=== PATIENT | female | born 1960 | race Caucasian/White ===

== ENCOUNTER → 2016-09-11 | Outpatient (CLI) | payer OTHER ==
[~2016-09-11] MED LIST: ASPIR LOW81 MG PO; CETIRIZINE HCL10 MG PO; CYMBALTA30 MG PO; ESIDREX,ORETIC,25 MG PO; FLEXERIL10 MG PO; HYDR25T PO; KENALOG 0.1% LO60 ML T; LIPITOR20 MG PO; LIPITOR40 MG PO; LISINOPRIL40 MG PO; LOPRESSOR25 MG PO; METFORMIN HCL500 MG PO; MOTRIN800 MG PO; Meclizine25 MG PO; NAPROSYN500 MG PO; NOVOLOG 70/30 M10 ML SC; OMEPRAZOLE D/R20 MG PO; OXYBUTYNIN5 MG PO; PERCOCET 325 MG1 TA5 PO; PREVACID30 M1 PO; PRINIVIL20 MG PO; PROAIR HFA0.09 MG/AC IH; PROTONIX TR40 MG PO; PYRIDIUM200 MG PO; ROBITUSSIN5 ML PO; TERBINAFINE HCL1% TP; TRAD5TAB1 PO; VICODIN 500 MG-1 TAB PO; VITAMIN E PO; ZANTAC150 MG PO; ZITHROMAX Z PA250 MG PO; ZOFRAN ODT4 MG SL; ZOFRAN4 MG PO
== END | disposition home or self-care (01) ==
LOC: RAD 08:00 → RAD/SH 08:00
DX: R13.19 Other dysphagia (principal)

== ENCOUNTER → 2016-11-11 | Outpatient (CLI) | payer OTHER | END | disposition home or self-care (01) | LOC: US 14:33 | DX: N95.0 Postmenopausal bleeding (principal); R10.32 Left lower quadrant pain ==

== ENCOUNTER → 2018-05-28 | Outpatient (CLI) | payer OTHER ==
[~2018-05-28] MED LIST changes: +ALOGLIPTIN12.5 MG PO; +BASAG SOL SQ; +CLARITIN-D 121 EACH PO; +Carafate1 GM PO; +MECLIZINE HCL25 M2 PO; +NITROFURANTOIN100 M8 PO; +NORVASC5 MG PO; +VITAMIN D32000 UNIT PO
== END | disposition home or self-care (01) ==
LOC: RAD 12:55
DX: M19.031 Primary osteoarthritis, right wrist (principal); I10 Essential (primary) hypertension; E11.9 Type 2 diabetes mellitus without complications

== ENCOUNTER → 2019-03-15 | Day surgery (SDC) | payer OTHER ==
[~2019-03-15] VITALS: Ht 160 cm; Wt 99.8 kg
[~2019-03-15] MED LIST changes: +GABAPENTIN100 M2 PO; +INSULIN LI100 UNIT/1 SQ; +VICTOZA 2-0.6 MG/0.1 SQ
--- NOTE | ~2019-03-15 | O ---
[place], [place] OPERATIVE NOTE NAME: [id number] UNIT #: [id number] ROOM: DOCTOR: VIRGINIA BERG,PANCHO BIRTHDATE: [birth year] DOS: The patient has presented with abdominal pain, undergoing investigation. PROCEDURE: Today's procedure part of investigation is colonoscopy. PREMEDICATION: Propofol. SCOPE: Olympus forward-viewing colonoscope 10L video. DESCRIPTION OF PROCEDURE: After putting the patient in left lateral position and application of lubricant to the scope, the scope was introduced. Thereafter, under direct visualization, advanced through the length of colon without difficulty. Diverticulosis was noticed. Base of the cecum explored, appendiceal orifice identified, ileocecal valve was defined. Air was suctioned out. A sessile polypoid lesion from sigmoid colon was removed. Base of the cecum explored, photographed. The patient extubated, tolerated the procedure well. IMPRESSION: Diverticulosis, sessile colonic polyp, sigmoid colon, status post piecemeal polypectomy. PLAN AND DISCUSSION: High fiber diet. ACTIVITY: Ad jackson. FOLLOWUP: As outpatient. I thank you very much indeed for your kind referral. PANCHO COLEMAN MD CM:OPRECORD:OPERATIVE NOTE 1012 1300 PANCHO COLEMAN MD 03/15/19 1300 interface
--- NOTE | ~2019-03-15 | O ---
[place], [place] OPERATIVE NOTE NAME[id number] UNIT #: [id number] ROOM: DOCTOR: PANCHO COLEMAN MD BIRTHDATE: [birth year] DOS: GASTROENDOSCOPIC REPORT HISTORY OF PRESENT ILLNESS: This is a 58-year-old patient who has presented with chief complaint of epigastric abdominal pain, undergoing investigation. The patient with a history of epigastric distress, status post Donovan fundoplication. PAST SURGICAL HISTORY: The patient with a history of cholecystectomy, D and C, bladder lift, tonsillectomy, and hysterectomy. PAST MEDICAL HISTORY: Hypertension, diabetes, and hyperlipidemia. PROCEDURE: Today's procedure part of investigation is panendoscopy and colonoscopy. PREMEDICATION: Propofol. SCOPE: Olympus forwarding gastroscope Q10 video. REPORT: After putting the patient in left lateral position and application of lubricant to the scope, the scope was introduced. Thereafter, under direct visualization, advanced through the length of esophagus without difficulty. Gastric pouch was entered. Gastritis seen. Antral biopsy obtained. Duodenal bulb, second and third part within normal limit. Air was suctioned out. The patient was extubated, tolerated the procedure well. IMPRESSION: Gastritis, status post Donovan fundoplication repair. PLAN AND DISCUSSION: I am going to proceed with 40 mg of Protonix a day, as she has been taking and will proceed with colonoscopy. PANCHO COLEMAN MD CM:OPRECORD:OPERATIVE NOTE 1012 1256 PANCHO COLEMAN MD 03/15/19 1256 interface
[2019-03-15 08:00] VITALS: BP 155/93
[2019-03-15 10:02] VITALS: BP 138/67
[2019-03-15 10:17] VITALS: BP 120/82
[2019-03-15 10:31] VITALS: BP 142/83
== END | disposition home or self-care (01) ==
LOC: SDC 03-10 10:15
DX: K62.5 Hemorrhage of anus and rectum (principal); K63.5 Polyp of colon; K29.50 Unspecified chronic gastritis without bleeding; K57.30 Diverticulosis of large intestine without perforation or abscess without bleeding; I10 Essential (primary) hypertension; E11.9 Type 2 diabetes mellitus without complications; E78.5 Hyperlipidemia, unspecified; J45.909 Unspecified asthma, uncomplicated; K44.9 Diaphragmatic hernia without obstruction or gangrene; F41.9 Anxiety disorder, unspecified; F32.9 Major depressive disorder, single episode, unspecified; E66.9 Obesity, unspecified; Z68.38 Body mass index [BMI] 38.0-38.9, adult; Z90.49 Acquired absence of other specified parts of digestive tract; Z90.710 Acquired absence of both cervix and uterus; Z79.899 Other long term (current) drug therapy; Z79.84 Long term (current) use of oral hypoglycemic drugs; Z98.890 Other specified postprocedural states; Z88.8 Allergy status to other drugs, medicaments and biological substances; Z83.3 Family history of diabetes mellitus; Z82.49 Family history of ischemic heart disease and other diseases of the circulatory system; Z80.9 Family history of malignant neoplasm, unspecified

== ENCOUNTER 2019-09-21 14:30 | Emergency (ER) | payer OTHER ==
[~2019-09-21] VITALS: Ht 160 cm; Wt 96.2 kg
[2019-09-21 15:04] LABS: BASO % 0.4 % (0.0-1.0); EOS % 0.1 % (1.0-4.0); HEMATOCRIT 42.4 % (37.0-47.0); LYMPH # 0.9 10*3/uL (1.3-4.4); LYMPH % 8.8 % (27.0-41.0); MEAN CORPUSCULAR HGB 30.4 pg (27.0-31.0); MEAN CORPUSCULAR HGB CONC 33.7 g/dl (33.0-37.0); MEAN PLATELET VOLUME 10.1 fl (9.6-12.3); MONO # 0.3 10*3/uL (0.1-1.0); MONO % 2.8 % (3.0-9.0); NEUT # 9.3 10*3/uL (2.3-7.9); NEUT % 87.4 % (47.0-73.0); PLATELET COUNT AUTOMATED 213 10*3/uL (130-400); RED BLOOD COUNT 4.71 10*6/uL (4.10-5.10); WHITE BLOOD COUNT 10.6 10*3/uL (4.8-10.8)
[2019-09-21 15:14] LABS: ACT PARTIAL THROMBO TIME 24.5 SECONDS (20.0-32.1)
[2019-09-21 15:19] LABS: ALBUMIN 3.5 gm/dl (3.1-4.5); ALKALINE PHOSPHATASE 82 U/L (45-117); BUN 10 mg/dl (7-24); CHLORIDE 108 mmol/L (98-107); CREATININE 1.01 mg/dL (0.55-1.02); SGOT/AST 35 IU/L (3-35); SGPT/ALT 42 U/L (12-78); SODIUM 137 mmol/L (136-145); TOTAL PROTEIN 7.4 gm/dL (6.4-8.2)
[2019-09-21 16:59] VITALS: BP 144/84
[2019-09-21] MEDS ORDERED: ZOFRAN4 MG PO (18:14)
== END 2019-09-21 18:49 | disposition home or self-care (01) ==
LOC: ED 14:30
PROVIDERS: Emergency Medicine
DX: R51 Headache (principal); R11.2 Nausea with vomiting, unspecified; E11.9 Type 2 diabetes mellitus without complications; K21.9 Gastro-esophageal reflux disease without esophagitis; E78.5 Hyperlipidemia, unspecified; J45.909 Unspecified asthma, uncomplicated; F41.9 Anxiety disorder, unspecified; I10 Essential (primary) hypertension; F32.9 Major depressive disorder, single episode, unspecified; Z88.2 Allergy status to sulfonamides; Z88.8 Allergy status to other drugs, medicaments and biological substances; Z91.041 Radiographic dye allergy status; Z88.0 Allergy status to penicillin; Z79.899 Other long term (current) drug therapy; Z79.4 Long term (current) use of insulin; Z90.49 Acquired absence of other specified parts of digestive tract

== ENCOUNTER 2019-12-22 10:06 | Inpatient (IN) | payer OTHER ==
[~2019-12-22] VITALS: Ht 167.6 cm; Wt 91.7 kg
[2019-12-22 10:10] VITALS: BP 157/96
[2019-12-22 10:37] LABS: BASO # 0.1 10*3/uL (0.0-0.1); BASO % 0.5 % (0.0-1.0); EOS % 0.2 % (1.0-4.0); HEMATOCRIT 45.5 % (37.0-47.0); LYMPH # 1.5 10*3/uL (1.3-4.4); LYMPH % 13.9 % (27.0-41.0); MONO # 0.3 10*3/uL (0.1-1.0); NEUT # 8.9 10*3/uL (2.3-7.9); NEUT % 81.8 % (47.0-73.0); PLATELET COUNT AUTOMATED 253 10*3/uL (130-400); RED BLOOD COUNT 5.17 10*6/uL (4.10-5.10); RED CELL DISTRI WIDTH 11.9 % (0-14.5); WHITE BLOOD COUNT 10.9 10*3/uL (4.8-10.8)
[2019-12-22 10:51] LABS: ALBUMIN 3.6 gm/dl (3.1-4.5); CREATININE 1.32 mg/dL (0.55-1.02)
[2019-12-22 12:50] LABS: BILIRUBIN NEGATIVE (NEGATIVE); BLOOD NEGATIVE (NEGATIVE); CLARITY CLEAR (CLEAR); COLOR YELLOW (YELLOW); GLUCOSE 3+ (NEGATIVE); KETONE 3+ (NEGATIVE)
[2019-12-22 12:51] LABS: LEUKO ESTERASE NEGATIVE (NEGATIVE); NITRITE NEGATIVE (NEGATIVE); UROBILINOGEN 0.2 E.U./dl (0.2-1.0)
[2019-12-22 12:54] LABS: BACTERIA 1+
[2019-12-22 13:11] VITALS: BP 166/92
[2019-12-22] MEDS ORDERED: ZOFRAN4 MG PO (13:17)
--- NOTE | 2019-12-22 13:56 | NUR ---
PT WITH INCREASED N/V @ DISCHARGE AND PT TO BE ADMITTED PER MICH MCNAMARA ORAL AND MAXILLOFACIAL SURGERY RESIDENT-BC
--- NOTE | 2019-12-22 14:30 | NUR ---
PT DENIES WOUNDS. BRIEF HEAD TO TOE WAS PERFORMED. PT DOES NOT WANT TO BE ROLLED AROUND OR MOVE AT THIS TIME D/T N/V.
[2019-12-22] MEDS ORDERED: AMITRIPTYLINE H10 M1 PO (15:33)
[2019-12-22] MEDS ORDERED: MONTELUKAST SOD10 MG PO (15:35)
[2019-12-22] MEDS ORDERED: STEGLATRO15 MG PO (15:38)
[2019-12-22 16:40] VITALS: BP 148/91
--- NOTE | 2019-12-22 16:40 | NUR ---
Time: 1639 A 59 year old FEMALE admitted to 5E under services of DR. EILEEN BERG,[facility] Pt. arrived via bed from ER. Chief complaint: NAUSEA,VOMITING AND H/A. MARCEL SOSA
--- NOTE | 2019-12-22 17:47 | NUR ---
NOTIFIED DR FORRESTER OF NEW CONSULT FOR POSSIBLE EGD.
[2019-12-22 20:00] VITALS: BP 154/85
[2019-12-23] VITALS: BP 138/66
--- NOTE | 2019-12-23 02:25 | NUR ---
TYLENOL GIVEN FOR HEADACHE RATED A 8 OUT OF 10
--- NOTE | 2019-12-23 03:00 | NUR ---
24 HR chart check completed.
--- NOTE | 2019-12-23 03:20 | NUR ---
tylenol effective patient sleeping peacefully in room
[2019-12-23 06:07] LABS: BASO % 0.1 % (0.0-1.0); HEMATOCRIT 38.4 % (37.0-47.0); LYMPH # 1.2 10*3/uL (1.3-4.4); MEAN CELL VOLUME 88.1 fl (81.0-99.0); MEAN CORPUSCULAR HGB 29.1 pg (27.0-31.0); MEAN CORPUSCULAR HGB CONC 33.1 g/dl (33.0-37.0); MEAN PLATELET VOLUME 10.4 fl (9.6-12.3); MONO # 0.5 10*3/uL (0.1-1.0); MONO % 3.8 % (3.0-9.0); NEUT % 85.1 % (47.0-73.0); PLATELET COUNT AUTOMATED 226 10*3/uL (130-400); RED BLOOD COUNT 4.36 10*6/uL (4.10-5.10); RED CELL DISTRI WIDTH 12.1 % (0-14.5); WHITE BLOOD COUNT 11.7 10*3/uL (4.8-10.8)
[2019-12-23 06:25] LABS: ALBUMIN 2.8 gm/dl (3.1-4.5); BUN 18 mg/dl (7-24); CHLORIDE 100 mmol/L (98-107); POTASSIUM 4.1 mmol/L (3.5-5.1); SODIUM 134 mmol/L (136-145)
[2019-12-23 06:28] LABS: ALKALINE PHOSPHATASE 62 U/L (45-117); CREATININE 1.06 mg/dL (0.55-1.02); SGOT/AST 17 IU/L (3-35); SGPT/ALT 24 U/L (12-78); TOTAL PROTEIN 6.3 gm/dL (6.4-8.2)
--- NOTE | 2019-12-23 07:40 | NUR ---
PATIENT RESTING QUIETLY IN BED. AROUSES EASILY. BSG 269 ACCORDING TO CMP. SCHEDULED 20 UNITS OF INSULIN ADMINISTERED AT THIS TIME PER ORDER. PT DENIES ANY ABD PAIN/DISCOMFORT AT THIS TIME. PT DENIES ANY NAUSEA/VOMITING THROUGHOUT THE NIGHT. WILL CONTINUE TO MONITOR. IVF INFUSING. CALL LIGHT WITHIN REACH.
[2019-12-23 08:00] VITALS: BP 120/55
--- NOTE | 2019-12-23 08:32 | NUR ---
IN TO SEE PATIENT.
[2019-12-23 12:00] VITALS: BP 116/59
--- NOTE | 2019-12-23 12:05 | NUR ---
[facility] Home in to talk to patient. Patient states lives at HOME with . There are FEW steps in the home. Physician: EILEEN Pharmacy: [facility] Home health services: NONE Patient's level of ADLs: INDEPENDENT Patient has working utilities: YES DME: NONE Follow-up physician's appointment after d/c: WILL BE MADE BY HOSPITALIST NURSE DIRECTOR ON DISCHARGE Does patient want to access PORTAL?: NO Discharge plan PT LIVES AT HOME WITH HER FAMILY AND IS INDEPENDENT AT HOME DISCUSSED HOME NEEDS WITH PT BUT SHE DECLINES AT THIS TIME. WILL CONTINUE TO FOLLOW. PLAN IS TO RETURN HOME WHEN MEDICALLY STABLE. STATES SHE WILL HAVE A RIDE HOME. DANILO NAVAS
--- NOTE | 2019-12-23 12:10 | NUR ---
TYLENOL GIVEN PER PRN ORDER FOR C/O HEADACHE. WILL MONITOR EFFECTIVENESS. VSS.
--- NOTE | 2019-12-23 13:10 | NUR ---
TYLENOL RELIEVING HEADACHE PER PT. WILL CONTINUE TO MONITOR. PT TOLERATING REGULAR DIET WITHOUT ANY DIFFICULTY. CALL LIGHT WITHIN REACH.
[2019-12-23 16:00] VITALS: BP 117/66
[2019-12-23 20:00] VITALS: BP 101/48; BP 106/62
--- NOTE | 2019-12-23 21:15 | NUR ---
IN TO ASSESS PATIENT. PATIENT COOPERATIVE, PLEASANT BUT FLAT. BREATHING IS EASY AND REGULAR ON ROOM AIR. IV FLUIDS INFUSING PER ORDER. PATIENT STATES THAT SHES FEELING BETTER THAN WHEN SHE CAME IN AND HAD ONE BOUT OF DIARRHEA EARLIER THIS MORNING. DENIES ANY NAUSEA. CALL LIGHT WITHIN REACH, WILL MONITOR
[2019-12-24] VITALS: BP 100/56; BP 95/53
--- NOTE | 2019-12-24 00:37 | NUR ---
24 HR chart check completed.
--- NOTE | 2019-12-24 00:59 | NUR ---
PATIENT SLEEPING, NO DISTRESS NOTED. BREATHING IS EASY AND REGULAR. IV FLUIDS INFUSING PER ORDER. CALL LIGHT WITHIN REACH, WILL MONITOR
[2019-12-24 08:00] VITALS: BP 107/63
[2019-12-24 12:00] VITALS: BP 148/76
--- NOTE | 2019-12-24 12:03 | NUR ---
PATIENT MEDICATED WITH TYLENOL FOR COMPLAINTS OF HEADACHE. WILL MONITOR FOR EFFECTIVENESS.
--- NOTE | 2019-12-24 13:03 | NUR ---
PT STATES THAT TYLENOL HAS NOT BEED EFFECTIVE - WILL NOTIIFY
[2019-12-24 16:00] VITALS: BP 125/72
--- NOTE | 2019-12-24 17:00 | NUR ---
PATIENT IS REFUSING 1800 MED DUE TO NAUSEA. STATES SHE WILL RETRY IN A LITTLE BIT. ALSO HELD 1700 INSULIN DUE TO BSG 136 & PATIENT NOT EATING AT THIS TIME.
[2019-12-24 20:00] VITALS: BP 154/76
--- NOTE | 2019-12-24 20:34 | NUR ---
IN TO ASSESS PATIENT. PATIENT STATES SHE FEELS MUCH BETTER AT THIS TIME BESIDES HER POOR APPETITE. SHE STATES LONG SHE DOESN'T EAT SHE IS OK, BUT WHEN SHE EATS IT FEELS LIKE SHE'S GOING TO THROW IT BACK UP. PATIENT STATES SHE HAS HAD ONE OTHER BOWEL MOVEMENT TONIGHT AND IT WAS SMALL. PATIENT HAS NO OTHER COMPLAINTS. DENIES ANY PAIN IN THE ABDOMEN AT THIS TIME. STATES IT COMES AND GOES. CALL LIGHT WITHIN REACH, WILL MONITOR
[2019-12-25] VITALS: BP 130/58
--- NOTE | 2019-12-25 02:00 | NUR ---
PATIENT SLEEPING, NO DISTRESS NOTED. IV FLUIDS INFUSING. CALL LIGHT WITHIN REACH, WILL MONITOR
--- NOTE | 2019-12-25 04:12 | NUR ---
24 HR chart check completed.
[2019-12-25 07:14] LABS: CREATININE 1.17 mg/dL (0.55-1.02); POTASSIUM 3.6 mmol/L (3.5-5.1)
[2019-12-25 08:00] VITALS: BP 149/74
--- NOTE | 2019-12-25 10:45 | NUR ---
Engineering Assistant in to talk to patient. Patient states lives at home with her and her children. There are 16 steps in the home and 4 steps outside the home. Physician: Dr. Hakeem Guaman Pharmacy: [facility] Home health services: none Patient's level of ADLs: INDEPENDENT Patient has working utilities: yes DME: none Follow-up physician's appointment after d/c: she prefers to make her own follow up appt after discharge Does patient want to access PORTAL?: no Discharge plan discussed with patient. She lives at home with her family. She is independent in her ADLs and ambulation. Discussed home health care services and she declines any home health care needs at this time. Engineering Assistant will continue to follow for discharge planning needs. When medically stable she will be discharged to home. She states either her or stepfather will provide transportation on discharge. LUIGI HOANG
[2019-12-25 12:00] VITALS: BP 125/65
[2019-12-25] MEDS ORDERED: PROTONIX TR40 MG PO (15:31)
[2019-12-25] MEDS ORDERED: IMITREX100 MG PO (15:31)
[2019-12-25] MEDS ORDERED: ZOFRAN4 MG PO (15:31)
[2019-12-25] MEDS ORDERED: CIPRO500 MG PO (15:31)
[2019-12-25] MEDS ORDERED: FLAGYL500 MG PO (15:31)
--- NOTE | 2019-12-25 15:55 | NUR ---
Discharge instructions reviewed with patient/family. Patient receptive and verbalizes understanding. Follow-up care arranged. Written instructions given to patient/family. [place] DISCONTINUED. PATIENT AMBULATORY OFF FLOOR. DEBBIE COVARRUBIAS
== END 2019-12-25 15:57 | disposition home or self-care (01) | DRG 249 ==
LOC: ED 10:06 → 5E 13:45 → EDHOLD 13:45 → 5E 13:57
PROVIDERS: Nurse Practitioner Family; ADMIT Internal Medicine; ATTEND Internal Medicine
DX: K52.9 Noninfective gastroenteritis and colitis, unspecified (principal); K29.00 Acute gastritis without bleeding; E78.5 Hyperlipidemia, unspecified; E55.9 Vitamin D deficiency, unspecified; N17.0 Acute kidney failure with tubular necrosis; I10 Essential (primary) hypertension; E87.1 Hypo-osmolality and hyponatremia; G43.909 Migraine, unspecified, not intractable, without status migrainosus; F32.9 Major depressive disorder, single episode, unspecified; F41.9 Anxiety disorder, unspecified; K21.9 Gastro-esophageal reflux disease without esophagitis; G56.00 Carpal tunnel syndrome, unspecified upper limb; E66.01 Morbid (severe) obesity due to excess calories; K44.9 Diaphragmatic hernia without obstruction or gangrene; K76.0 Fatty (change of) liver, not elsewhere classified; K57.30 Diverticulosis of large intestine without perforation or abscess without bleeding; B96.20 Unspecified Escherichia coli [E. coli] as the cause of diseases classified elsewhere; E11.9 Type 2 diabetes mellitus without complications; E44.0 Moderate protein-calorie malnutrition; N39.0 Urinary tract infection, site not specified; Z79.4 Long term (current) use of insulin; Z88.0 Allergy status to penicillin; Z88.2 Allergy status to sulfonamides; Z88.1 Allergy status to other antibiotic agents; Z88.8 Allergy status to other drugs, medicaments and biological substances; Z91.041 Radiographic dye allergy status; Z90.49 Acquired absence of other specified parts of digestive tract; Z98.51 Tubal ligation status; Z82.49 Family history of ischemic heart disease and other diseases of the circulatory system; Z83.3 Family history of diabetes mellitus; Z80.1 Family history of malignant neoplasm of trachea, bronchus and lung; Z68.32 Body mass index [BMI] 32.0-32.9, adult; Z87.11 Personal history of peptic ulcer disease; Z87.440 Personal history of urinary (tract) infections; Z79.82 Long term (current) use of aspirin; Z79.899 Other long term (current) drug therapy

== ENCOUNTER → 2020-01-08 | Outpatient (CLI) | payer OTHER ==
[~2020-01-08] MED LIST changes: +AMITRIPTYLINE H10 M1 PO; +CIPRO500 MG PO; +FLAGYL500 MG PO; +IMITREX100 MG PO; +MONTELUKAST SOD10 MG PO; +STEGLATRO15 MG PO
== END | disposition home or self-care (01) ==
LOC: NM 07:56
DX: K30 Functional dyspepsia (principal)

== ENCOUNTER → 2020-02-19 | Outpatient (CLI) | payer OTHER | END | disposition home or self-care (01) | LOC: MAMMO 13:30 → LAB 14:09 | PROVIDERS: ATTEND Internal Medicine | DX: Z12.31 Encounter for screening mammogram for malignant neoplasm of breast (principal); E11.9 Type 2 diabetes mellitus without complications; N63.15 Unspecified lump in the right breast, overlapping quadrants ==

== ENCOUNTER 2020-04-25 21:56 | Emergency (ER) | payer OTHER ==
[2020-04-25 22:32] LABS: ALBUMIN 3.8 gm/dl (3.1-4.5); CREATININE 1.45 mg/dL (0.55-1.02); POTASSIUM 4.1 mmol/L (3.5-5.1); TOTAL PROTEIN 8.1 gm/dL (6.4-8.2)
[2020-04-26 00:16] LABS: BASO % 0.1 % (0.0-1.0); EOS % 0.1 % (1.0-4.0); LYMPH # 2.2 10*3/uL (1.3-4.4); LYMPH % 13.6 % (27.0-41.0); MEAN CELL VOLUME 88.4 fl (81.0-99.0); MEAN CORPUSCULAR HGB 29.7 pg (27.0-31.0); MEAN CORPUSCULAR HGB CONC 33.6 g/dl (33.0-37.0); MEAN PLATELET VOLUME 10.2 fl (9.6-12.3); MONO # 0.8 10*3/uL (0.1-1.0); MONO % 5.1 % (3.0-9.0); NEUT # 12.7 10*3/uL (2.3-7.9); NEUT % 80.5 % (47.0-73.0); PLATELET COUNT AUTOMATED 241 10*3/uL (130-400); RED BLOOD COUNT 4.75 10*6/uL (4.10-5.10); RED CELL DISTRI WIDTH 12.3 % (0-14.5); WHITE BLOOD COUNT 15.8 10*3/uL (4.8-10.8)
[2020-04-26 02:57] VITALS: BP 109/57
== END 2020-04-26 04:32 | disposition short-term general hospital (02) ==
LOC: ED 21:56
PROVIDERS: Internal Medicine
DX: N18.30 Chronic kidney disease, stage 3 unspecified (principal); N17.9 Acute kidney failure, unspecified; R73.9 Hyperglycemia, unspecified; I63.9 Cerebral infarction, unspecified; D72.829 Elevated white blood cell count, unspecified; Z91.041 Radiographic dye allergy status; Z88.0 Allergy status to penicillin; Z88.8 Allergy status to other drugs, medicaments and biological substances; Z79.899 Other long term (current) drug therapy; Z79.82 Long term (current) use of aspirin; Z79.4 Long term (current) use of insulin

== ENCOUNTER 2020-06-19 15:15 | Inpatient (IN) | payer OTHER ==
[~2020-06-19] VITALS: Ht 157.4 cm; Wt 94.8 kg
[~2020-06-19 15:15] MED LIST changes: +LIPITOR80 MG PO
[2020-06-19 15:27] VITALS: BP 133/78
[2020-06-19 17:53] LABS: BASO # 0.1 10*3/uL (0.0-0.1); BASO % 0.7 % (0.0-1.0); EOS # 0.4 10*3/uL (0.0-0.4); EOS % 3.2 % (1.0-4.0); HEMATOCRIT 39.1 % (37.0-47.0); LYMPH # 2.8 10*3/uL (1.3-4.4); LYMPH % 23.5 % (27.0-41.0); MEAN CELL VOLUME 91.1 fl (81.0-99.0); MEAN CORPUSCULAR HGB 28.7 pg (27.0-31.0); MEAN CORPUSCULAR HGB CONC 31.5 g/dl (33.0-37.0); MEAN PLATELET VOLUME 9.1 fl (9.6-12.3); MONO # 0.8 10*3/uL (0.1-1.0); MONO % 6.9 % (3.0-9.0); NEUT # 7.8 10*3/uL (2.3-7.9); PLATELET COUNT AUTOMATED 384 10*3/uL (130-400); RED BLOOD COUNT 4.29 10*6/uL (4.10-5.10); RED CELL DISTRI WIDTH 13.6 % (0-14.5)
[2020-06-19 18:02] LABS: BILIRUBIN Negative (Negative); BLOOD 1+ (Negative); CLARITY Cloudy (Clear); COLOR Yellow (Yellow); GLUCOSE Negative (Negative); KETONE Trace (Negative); LEUKO ESTERASE 2+ (Negative); NITRITE Positive (Negative); PH 5.5 (4.5-8.0); UROBILINOGEN 0.2 E.U./dl (0.0-1.0)
[2020-06-19 18:07] LABS: ACT PARTIAL THROMBO TIME 24.6 SECONDS (20.0-32.1); INTERNATIONAL NORM RATIO 1.1 (2.0-3.5)
[2020-06-19 18:10] LABS: ALBUMIN 2.9 gm/dl (3.1-4.5); ALKALINE PHOSPHATASE 77 U/L (45-117); BUN 25 mg/dl (7-24); CHLORIDE 103 mmol/L (98-107); CREATININE 1.19 mg/dL (0.55-1.02); LIPASE 312 U/L (73-393); POTASSIUM 3.9 mmol/L (3.5-5.1); SGOT/AST 49 IU/L (3-35); SGPT/ALT 63 U/L (12-78); SODIUM 136 mmol/L (136-145); TOTAL PROTEIN 7.7 gm/dL (6.4-8.2)
[2020-06-19 18:16] LABS: BACTERIA 3+; WBC TNTC wbc/hpf (0-5)
[2020-06-19 18:18] LABS: TROPONIN I < 0.015 ng/ml (<0.045)
[2020-06-19 19:41] VITALS: BP 130/71
[2020-06-19] MEDS ORDERED: ZOFRAN4 MG PO (21:57)
[2020-06-19] MEDS ORDERED: DULCOLAX10 M1 R (21:58)
[2020-06-19] MEDS ORDERED: LANTUS SOL100 UNIT/1 SC (21:59)
[2020-06-19] MEDS ORDERED: MIRALAX17 GM PO (22:00)
[2020-06-19] MEDS ORDERED: Lovenox40 MG/0.4 PO (22:01)
[2020-06-19] MEDS ORDERED: TRAMADOL HCL50 MG PO (22:03)
[2020-06-19] MEDS ORDERED: ANUSOL HC30 GM PO (22:05)
[2020-06-19] MEDS ORDERED: HUMALOG100 UNIT/2 SC (22:28)
[2020-06-19 22:45] VITALS: BP 102/53
[2020-06-20] VITALS (8 sets, daily range): BP systolic 116–151; BP diastolic 53–74
[2020-06-20 05:47] LABS: ALBUMIN 2.5 gm/dl (3.1-4.5); ALKALINE PHOSPHATASE 61 U/L (45-117); BUN 22 mg/dl (7-24); CHLORIDE 105 mmol/L (98-107); CREATININE 0.87 mg/dL (0.55-1.02); POTASSIUM 3.5 mmol/L (3.5-5.1); SGOT/AST 22 IU/L (3-35); SGPT/ALT 44 U/L (12-78); SODIUM 138 mmol/L (136-145); TOTAL PROTEIN 6.4 gm/dL (6.4-8.2)
[2020-06-20 06:10] LABS: BASO # 0.1 10*3/uL (0.0-0.1); BASO % 0.7 % (0.0-1.0); EOS # 0.5 10*3/uL (0.0-0.4); EOS % 6.5 % (1.0-4.0); HEMATOCRIT 34.5 % (37.0-47.0); LYMPH # 3.3 10*3/uL (1.3-4.4); LYMPH % 40.6 % (27.0-41.0); MEAN CELL VOLUME 91.8 fl (81.0-99.0); MEAN CORPUSCULAR HGB 28.7 pg (27.0-31.0); MEAN CORPUSCULAR HGB CONC 31.3 g/dl (33.0-37.0); MEAN PLATELET VOLUME 9.4 fl (9.6-12.3); MONO # 0.7 10*3/uL (0.1-1.0); MONO % 8.4 % (3.0-9.0); NEUT # 3.5 10*3/uL (2.3-7.9); NEUT % 42.9 % (47.0-73.0); PLATELET COUNT AUTOMATED 322 10*3/uL (130-400); RED BLOOD COUNT 3.76 10*6/uL (4.10-5.10); RED CELL DISTRI WIDTH 13.7 % (0-14.5); WHITE BLOOD COUNT 8.1 10*3/uL (4.8-10.8)
[2020-06-20] MEDS ORDERED: JARDIANCE25 MG PO (08:16)
[2020-06-20] MEDS ORDERED: LOPRESSOR25 MG PO (08:19)
[2020-06-20] MEDS ORDERED: Ventolin 02.5 MG/3 M INH (08:40)
[2020-06-20] MEDS ORDERED: FLONASE ALLERG9.9 ML NAS (08:43)
[2020-06-20] MEDS ORDERED: LANTUS SOL100 UNIT/1 SC (08:44)
[2020-06-20] MEDS ORDERED: SENOKOT8.6 MG PO (08:50)
[2020-06-21] VITALS: BP 144/75
[2020-06-21 06:57] LABS: BASO # 0.1 10*3/uL (0.0-0.1); BASO % 0.5 % (0.0-1.0); EOS # 0.4 10*3/uL (0.0-0.4); HEMATOCRIT 36.6 % (37.0-47.0); LYMPH # 3.1 10*3/uL (1.3-4.4); LYMPH % 27.9 % (27.0-41.0); MEAN CELL VOLUME 92.2 fl (81.0-99.0); MEAN CORPUSCULAR HGB 28.5 pg (27.0-31.0); MEAN CORPUSCULAR HGB CONC 30.9 g/dl (33.0-37.0); MEAN PLATELET VOLUME 9.2 fl (9.6-12.3); MONO # 0.8 10*3/uL (0.1-1.0); MONO % 6.9 % (3.0-9.0); NEUT # 6.7 10*3/uL (2.3-7.9); NEUT % 60.3 % (47.0-73.0); PLATELET COUNT AUTOMATED 318 10*3/uL (130-400); RED BLOOD COUNT 3.97 10*6/uL (4.10-5.10); RED CELL DISTRI WIDTH 13.8 % (0-14.5)
[2020-06-21 07:02] LABS: BUN 16 mg/dl (7-24); CHLORIDE 107 mmol/L (98-107); CREATININE 0.79 mg/dL (0.55-1.02); SODIUM 137 mmol/L (136-145)
[2020-06-21 07:06] LABS: CHOLESTEROL 151 mg/dL (<200); HDL CHOLESTEROL 53 mg/dl (40-60); IRON 48 ug/dL (50-170); LDL CHOLESTEROL 70 mg/dL (9-159); TOTAL IRON BINDING CAPACITY 399 ug/dl (250-450); TRIGLYCERIDES 139 mg/dl (<150); VLDL CHOLESTEROL 28 mg/dL (6-40)
[2020-06-21 07:51] LABS: FERRITIN 273.3 ng/mL (10.0-291.0)
[2020-06-21 08:00] VITALS: BP 126/78
[2020-06-21] MEDS ORDERED: IRON325 M3 PO (11:22)
[2020-06-21] MEDS ORDERED: CIPROFLOXACIN250 MG PO (11:38)
[2020-06-21 12:00] VITALS: BP 125/75
[2020-06-21] MEDS ORDERED: PROTONIX40 M1 PO (15:02)
[2020-06-21] MEDS ORDERED: ZESTRIL10 MG PO (15:02)
== END 2020-06-21 15:34 | disposition home health service (06) | DRG 720 ==
LOC: ED 15:15 → 5E 18:38 → EDHOLD 18:38 → 5E 06-20 11:46
PROVIDERS: Emergency Medicine; Student in an Organized Health Care Education/Training Program; ADMIT Internal Medicine; ATTEND Internal Medicine
DX: A41.9 Sepsis, unspecified organism (principal); N39.0 Urinary tract infection, site not specified; N17.0 Acute kidney failure with tubular necrosis; D64.9 Anemia, unspecified; E11.65 Type 2 diabetes mellitus with hyperglycemia; E43 Unspecified severe protein-calorie malnutrition; E55.9 Vitamin D deficiency, unspecified; K21.9 Gastro-esophageal reflux disease without esophagitis; R74.01 Elevation of levels of liver transaminase levels; E86.0 Dehydration; R53.1 Weakness; I10 Essential (primary) hypertension; E61.1 Iron deficiency; B96.20 Unspecified Escherichia coli [E. coli] as the cause of diseases classified elsewhere; Z20.822 Contact with and (suspected) exposure to COVID-19; E66.01 Morbid (severe) obesity due to excess calories; Z88.0 Allergy status to penicillin; Z88.2 Allergy status to sulfonamides; Z91.041 Radiographic dye allergy status; Z88.8 Allergy status to other drugs, medicaments and biological substances; Z90.49 Acquired absence of other specified parts of digestive tract; Z98.51 Tubal ligation status; Z83.3 Family history of diabetes mellitus; Z82.49 Family history of ischemic heart disease and other diseases of the circulatory system; Z80.1 Family history of malignant neoplasm of trachea, bronchus and lung; Z68.38 Body mass index [BMI] 38.0-38.9, adult

== ENCOUNTER 2020-08-01 19:40 | Inpatient (IN) | payer OTHER ==
[~2020-08-01] VITALS: Ht 160 cm; Wt 96.2 kg
[~2020-08-01 19:40] MED LIST changes: +ANUSOL HC30 GM PO; +CIPROFLOXACIN250 MG PO; +DULCOLAX10 M1 R; +FLONASE ALLERG9.9 ML NAS; +HUMALOG100 UNIT/2 SC; +IRON325 M3 PO; +JARDIANCE25 MG PO; +LANTUS SOL100 UNIT/1 SC; +Lovenox40 MG/0.4 PO; +MIRALAX17 GM PO; +PROTONIX40 M1 PO; +SENOKOT8.6 MG PO; +TRAMADOL HCL50 MG PO; +Ventolin 02.5 MG/3 M INH; +ZESTRIL10 MG PO
[2020-08-01 19:45] VITALS: BP 159/98
[2020-08-01 20:48] LABS: BASO # 0.1 10*3/uL (0.0-0.1); BASO % 0.5 % (0.0-1.0); EOS # 0.1 10*3/uL (0.0-0.4); EOS % 0.4 % (1.0-4.0); HEMATOCRIT 36.3 % (37.0-47.0); LYMPH # 1.7 10*3/uL (1.3-4.4); LYMPH % 10.2 % (27.0-41.0); MEAN CELL VOLUME 87.3 fl (81.0-99.0); MEAN CORPUSCULAR HGB 27.4 pg (27.0-31.0); MEAN CORPUSCULAR HGB CONC 31.4 g/dl (33.0-37.0); MEAN PLATELET VOLUME 9.8 fl (9.6-12.3); MONO # 1.2 10*3/uL (0.1-1.0); MONO % 7.4 % (3.0-9.0); NEUT # 13.5 10*3/uL (2.3-7.9); NEUT % 81.3 % (47.0-73.0); PLATELET COUNT AUTOMATED 335 10*3/uL (130-400); RED BLOOD COUNT 4.16 10*6/uL (4.10-5.10); RED CELL DISTRI WIDTH 14.3 % (0-14.5); WHITE BLOOD COUNT 16.6 10*3/uL (4.8-10.8)
[2020-08-01 21:04] LABS: ALBUMIN 2.7 gm/dl (3.1-4.5); ALKALINE PHOSPHATASE 70 U/L (45-117); BUN 10 mg/dl (7-24); CHLORIDE 100 mmol/L (98-107); CREATININE 1.07 mg/dL (0.55-1.02); POTASSIUM 3.4 mmol/L (3.5-5.1); SGOT/AST 9 IU/L (3-35); SGPT/ALT 14 U/L (12-78); SODIUM 137 mmol/L (136-145); TOTAL PROTEIN 7.6 gm/dL (6.4-8.2)
[2020-08-01 22:39] LABS: BILIRUBIN Negative (Negative); BLOOD 1+ (Negative); CLARITY Cloudy (Clear); COLOR Yellow (Yellow); GLUCOSE Negative (Negative); KETONE Negative (Negative); LEUKO ESTERASE 3+ (Negative); NITRITE Positive (Negative); PH 6.5 (4.5-8.0); SPECIFIC GRAVITY <= 1.005 (1.001-1.030); UROBILINOGEN 0.2 E.U./dl (0.0-1.0)
[2020-08-01 22:54] VITALS: BP 113/54
[2020-08-01 22:55] VITALS: BP 113/54
[2020-08-01 22:56] LABS: BACTERIA 1+; WBC 21-30 wbc/hpf (0-5)
[2020-08-01 23:57] VITALS: BP 102/48
[2020-08-02 02:10] VITALS: BP 98/66
[2020-08-02 06:47] LABS: BASO # 0.1 10*3/uL (0.0-0.1); BASO % 0.5 % (0.0-1.0); EOS # 0.1 10*3/uL (0.0-0.4); EOS % 0.9 % (1.0-4.0); HEMATOCRIT 34.6 % (37.0-47.0); LYMPH # 2.6 10*3/uL (1.3-4.4); MEAN CELL VOLUME 87.2 fl (81.0-99.0); MEAN CORPUSCULAR HGB CONC 30.9 g/dl (33.0-37.0); MEAN PLATELET VOLUME 9.7 fl (9.6-12.3); MONO # 1.4 10*3/uL (0.1-1.0); MONO % 10.1 % (3.0-9.0); NEUT % 70.1 % (47.0-73.0); PLATELET COUNT AUTOMATED 286 10*3/uL (130-400); RED BLOOD COUNT 3.97 10*6/uL (4.10-5.10); RED CELL DISTRI WIDTH 14.3 % (0-14.5); WHITE BLOOD COUNT 14.2 10*3/uL (4.8-10.8)
[2020-08-02 06:56] LABS: BUN 9 mg/dl (7-24); CHLORIDE 106 mmol/L (98-107); POTASSIUM 3.4 mmol/L (3.5-5.1); SODIUM 140 mmol/L (136-145)
[2020-08-02 08:00] VITALS: BP 149/78
[2020-08-02 12:00] VITALS: BP 96/52
[2020-08-02 16:00] VITALS: BP 135/64
[2020-08-02 20:00] VITALS: BP 131/65
[2020-08-03] VITALS: BP 146/71
[2020-08-03 06:46] LABS: BASO # 0.1 10*3/uL (0.0-0.1); BASO % 0.6 % (0.0-1.0); EOS # 0.5 10*3/uL (0.0-0.4); EOS % 4.6 % (1.0-4.0); HEMATOCRIT 31.8 % (37.0-47.0); LYMPH # 2.5 10*3/uL (1.3-4.4); LYMPH % 23.1 % (27.0-41.0); MEAN CELL VOLUME 84.6 fl (81.0-99.0); MEAN CORPUSCULAR HGB 26.6 pg (27.0-31.0); MEAN CORPUSCULAR HGB CONC 31.4 g/dl (33.0-37.0); MEAN PLATELET VOLUME 9.9 fl (9.6-12.3); MONO % 9.2 % (3.0-9.0); NEUT # 6.7 10*3/uL (2.3-7.9); NEUT % 62.2 % (47.0-73.0); PLATELET COUNT AUTOMATED 269 10*3/uL (130-400); RED BLOOD COUNT 3.76 10*6/uL (4.10-5.10); RED CELL DISTRI WIDTH 13.9 % (0-14.5); WHITE BLOOD COUNT 10.7 10*3/uL (4.8-10.8)
[2020-08-03 07:29] LABS: ALBUMIN 2.1 gm/dl (3.1-4.5); BUN 6 mg/dl (7-24); CHLORIDE 106 mmol/L (98-107); POTASSIUM 3.2 mmol/L (3.5-5.1); SODIUM 138 mmol/L (136-145)
[2020-08-03 07:32] LABS: ALKALINE PHOSPHATASE 59 U/L (45-117); SGOT/AST 7 IU/L (3-35); SGPT/ALT 11 U/L (12-78); TOTAL PROTEIN 6.5 gm/dL (6.4-8.2)
[2020-08-03 08:00] VITALS: BP 152/78
[2020-08-03 12:00] VITALS: BP 149/77
[2020-08-03 16:00] VITALS: BP 153/81
[2020-08-03 20:00] VITALS: BP 116/78
[2020-08-04] VITALS: BP 149/81
[2020-08-04 06:03] LABS: BUN 5 mg/dl (7-24); CHLORIDE 102 mmol/L (98-107); CREATININE 0.88 mg/dL (0.55-1.02); POTASSIUM 3.3 mmol/L (3.5-5.1); SODIUM 138 mmol/L (136-145)
[2020-08-04 06:09] LABS: BASO # 0.1 10*3/uL (0.0-0.1); BASO % 0.6 % (0.0-1.0); EOS % 6.7 % (1.0-4.0); HEMATOCRIT 38.3 % (37.0-47.0); LYMPH # 2.9 10*3/uL (1.3-4.4); MEAN CELL VOLUME 85.3 fl (81.0-99.0); MEAN CORPUSCULAR HGB 26.9 pg (27.0-31.0); MEAN CORPUSCULAR HGB CONC 31.6 g/dl (33.0-37.0); MEAN PLATELET VOLUME 9.9 fl (9.6-12.3); MONO # 1.2 10*3/uL (0.1-1.0); MONO % 8.6 % (3.0-9.0); NEUT # 9.2 10*3/uL (2.3-7.9); NEUT % 63.5 % (47.0-73.0); RED BLOOD COUNT 4.49 10*6/uL (4.10-5.10); RED CELL DISTRI WIDTH 13.9 % (0-14.5); WHITE BLOOD COUNT 14.5 10*3/uL (4.8-10.8)
[2020-08-04 06:12] LABS: PLATELET COUNT AUTOMATED 390 10*3/uL (130-400)
[2020-08-04 08:00] VITALS: BP 108/56; BP 131/61
[2020-08-04 12:00] VITALS: BP 138/68
[2020-08-04 16:00] VITALS: BP 116/66
[2020-08-04] MEDS ORDERED: CIPRO500 MG PO (16:24)
[2020-08-04] MEDS ORDERED: MAGOX 400400 MG PO (16:43)
[2020-08-04] MEDS ORDERED: KLOR-CON 1010 ME1 PO (16:43)
[2020-08-04 20:00] VITALS: BP 129/72
[2020-08-05] VITALS: BP 139/73
[2020-08-05 06:45] LABS: BUN 8 mg/dl (7-24); CHLORIDE 104 mmol/L (98-107); CREATININE 0.99 mg/dL (0.55-1.02); POTASSIUM 4.1 mmol/L (3.5-5.1); SODIUM 138 mmol/L (136-145)
[2020-08-05 08:00] VITALS: BP 111/70
[2020-08-05 11:35] VITALS: BP 132/90
[2020-08-05 16:00] VITALS: BP 123/68
== END 2020-08-05 17:30 | disposition short-term general hospital (02) | DRG 720 ==
LOC: ED 19:40 → EDHOLD 23:20 → 5E 23:20
PROVIDERS: Internal Medicine Nephrology; Student in an Organized Health Care Education/Training Program; ADMIT Internal Medicine; ATTEND Internal Medicine
DX: A41.9 Sepsis, unspecified organism (principal); G93.41 Metabolic encephalopathy; K21.9 Gastro-esophageal reflux disease without esophagitis; K76.0 Fatty (change of) liver, not elsewhere classified; E43 Unspecified severe protein-calorie malnutrition; K44.9 Diaphragmatic hernia without obstruction or gangrene; N17.9 Acute kidney failure, unspecified; E87.6 Hypokalemia; R31.9 Hematuria, unspecified; N13.6 Pyonephrosis; D72.829 Elevated white blood cell count, unspecified; I10 Essential (primary) hypertension; E78.5 Hyperlipidemia, unspecified; F32.9 Major depressive disorder, single episode, unspecified; D64.9 Anemia, unspecified; E11.65 Type 2 diabetes mellitus with hyperglycemia; E66.01 Morbid (severe) obesity due to excess calories; F41.9 Anxiety disorder, unspecified; G56.00 Carpal tunnel syndrome, unspecified upper limb; Z90.49 Acquired absence of other specified parts of digestive tract; Z83.3 Family history of diabetes mellitus; Z86.73 Personal history of transient ischemic attack (TIA), and cerebral infarction without residual deficits; Z88.0 Allergy status to penicillin; Z88.2 Allergy status to sulfonamides; Z88.8 Allergy status to other drugs, medicaments and biological substances; Z88.1 Allergy status to other antibiotic agents; Z91.041 Radiographic dye allergy status; Z68.28 Body mass index [BMI] 28.0-28.9, adult; Z82.49 Family history of ischemic heart disease and other diseases of the circulatory system; Z80.9 Family history of malignant neoplasm, unspecified

== ENCOUNTER → 2020-08-22 | Outpatient (CLI) | payer OTHER ==
[~2020-08-22] MED LIST changes: +KLOR-CON 1010 ME1 PO; +MAGOX 400400 MG PO
[2020-08-22 14:02] LABS: BASO # 0.1 10*3/uL (0.0-0.1); BASO % 0.8 % (0.0-1.0); EOS # 0.6 10*3/uL (0.0-0.4); EOS % 4.6 % (1.0-4.0); HEMATOCRIT 40.3 % (37.0-47.0); LYMPH % 23.9 % (27.0-41.0); MEAN CELL VOLUME 84.8 fl (81.0-99.0); MEAN CORPUSCULAR HGB 26.7 pg (27.0-31.0); MEAN CORPUSCULAR HGB CONC 31.5 g/dl (33.0-37.0); MEAN PLATELET VOLUME 10.5 fl (9.6-12.3); MONO # 1.1 10*3/uL (0.1-1.0); MONO % 8.8 % (3.0-9.0); NEUT # 7.8 10*3/uL (2.3-7.9); NEUT % 61.5 % (47.0-73.0); PLATELET COUNT AUTOMATED 360 10*3/uL (130-400); RED BLOOD COUNT 4.75 10*6/uL (4.10-5.10); RED CELL DISTRI WIDTH 15.1 % (0-14.5); WHITE BLOOD COUNT 12.7 10*3/uL (4.8-10.8)
[2020-08-22 14:19] LABS: ALBUMIN 2.9 gm/dl (3.1-4.5); CREATININE 1.71 mg/dL (0.55-1.02); POTASSIUM 5.1 mmol/L (3.5-5.1); TOTAL PROTEIN 8.4 gm/dL (6.4-8.2)
[2020-08-22 14:27] LABS: ACT PARTIAL THROMBO TIME 28.3 SECONDS (20.0-32.1)
[2020-08-22 14:28] LABS: BILIRUBIN Negative (Negative); BLOOD 3+ (Negative); CLARITY Turbid (Clear); GLUCOSE Negative (Negative); KETONE Negative (Negative); LEUKO ESTERASE 3+ (Negative); NITRITE Positive (Negative); UROBILINOGEN 0.2 E.U./dl (0.0-1.0)
[2020-08-22 14:58] LABS: COLOR Dark Yellow (Yellow)
[2020-08-22 15:03] LABS: BACTERIA 2+; EPITHELIAL CELLS 0-2; RBC TNTC rbc/hpf (0-2); WBC TNTC wbc/hpf (0-5); YEAST 2+
== END | disposition home or self-care (01) ==
LOC: LAB 13:30
PROVIDERS: ATTEND Urology
DX: I10 Essential (primary) hypertension (principal); R39.15 Urgency of urination

== ENCOUNTER → 2020-09-02 | Outpatient (CLI) | payer OTHER | END | disposition home or self-care (01) | LOC: US 11:00 | PROVIDERS: ATTEND Urology | DX: N13.30 Unspecified hydronephrosis (principal); Z96.0 Presence of urogenital implants ==

== ENCOUNTER → 2020-10-21 | Outpatient (CLI) | payer OTHER | END | disposition home or self-care (01) | LOC: US 15:22 | PROVIDERS: ATTEND Urology | DX: N13.30 Unspecified hydronephrosis (principal); N28.89 Other specified disorders of kidney and ureter; Z96.0 Presence of urogenital implants ==